=== PATIENT | female | born 1960 | race Caucasian/White ===

== ENCOUNTER → 2018-03-12 12:38 | Outpatient (CLI) | payer OTHER, SELFPAY ==
[2018-03-12 15:02] LABS: Thyroid Stimulating Hormone 1.21 uIU/ml (0.358-3.740)
== END ==
PROVIDERS: Visit Provider Obstetrics & Gynecology
DX: R53.81 Other malaise (principal); R53.82 Chronic fatigue, unspecified
CPT/HCPCS: 36415; 84443

== ENCOUNTER → 2018-03-23 08:49 | Outpatient (POV) | payer OTHER, SELFPAY | PROVIDERS: Visit Provider Dermatology | DX: Z00.00 Encounter for general adult medical examination without abnormal findings (principal) ==

== ENCOUNTER → 2018-03-26 10:03 | Outpatient (CLI) | payer OTHER, SELFPAY ==
--- NOTE | 2018-03-26 | US_ITS ---
US breast RT complete COMPARISON: None HISTORY: Possible change in asymmetric density right breast on mammogram performed same date TECHNIQUE: Targeted ultrasound upper outer quadrant FINDINGS: There is normal-appearing primarily homogeneous glandular echogenicity in the upper outer quadrant of the breast. There is no suspicious cystic or solid lesions seen and there are no findings to suggest architectural distortion. There are couple borderline enlarged fatty replaced nodes in the axilla. IMPRESSION: Essentially negative targeted ultrasound and recommend the patient continue with yearly screening mammography.
--- NOTE | 2018-03-26 10:06 | MM_ITS ---
MM Dig mamm BI DX w/CAD COMPARISON: Digital mammograms with CAD 03/22/2012 and 02/14/2015 and analog mammogram 05/07/2005 INDICATION: There is no personal or family history of breast cancer, there has been a previous biopsy left breast . The patient complains of a possible lump or fullness upper outer quadrant right breast. TECHNIQUE: Standard MLO and CC views were obtained along with spot compression MLO and CC views. FINDINGS: The breasts are closed primarily of fat with minimal scattered fibroglandular densities in each breast. There is an asymmetric density upper outer quadrant right breast which has been seen previously but has somewhat more well-defined borders on today's exam best appreciated on the CC projection. The lesion does appear to press out somewhat on the spot CC view. Ultrasound was performed same date showing no abnormal cystic or solid mass at this location. There are no suspicious microcalcifications. IMPRESSION: Upper fatty parenchyma with stable asymmetric glandular tissue right breast and no suspicious lesion seen BI-RADS Category: 2 Benign Finding(s) RECOMMENDED FOLLOW-UP: 1YR - 1 YEAR FOLLOW-UP (A letter has been sent to the patient regarding results of the study.)
== END ==
PROVIDERS: Visit Provider Obstetrics & Gynecology
DX: N63.11 Unspecified lump in the right breast, upper outer quadrant
CPT/HCPCS: 76641; 77066

== ENCOUNTER 2021-10-11 08:30 | Emergency (ER) | payer OTHER, SELFPAY ==
[2021-10-11 08:30] VITALS: BP 157/98; PULSE 68; RESP 18; TEMP 36.2; O2SAT 98; BMI 33.2
--- NOTE | 2021-10-11 08:48 | HMH.EDUTC ---
[facility] – [place] Disposition Clinical Impression: Tick bite Qualifiers: Encounter type: initial encounter Site of tick bite: shoulder Laterality: right Qualified Code(s): S40.261A - Insect bite (nonvenomous) of right shoulder, initial encounter Cellulitis Qualifiers: Site of cellulitis: extremity Site of cellulitis of extremity: upper extremity Laterality: right Qualified Code(s): L03.113 - Cellulitis of right upper limb Disposition: Home, Self-Care Condition on Discharge: Good Instructions: DI for Cellulitis -- Adult, Protect Yourself from Tickborne Illnesses Additional Instructions: Keep the affected area clean and dry. Follow up with your regular doctor. Take the antibiotics as directed and apply the topical antibiotics as directed. Apply warm wet compresses to the affected area three or four times per day for the next 5 days GO TO THE ER FOR ANY WORSENING SYMPTOMS Prescriptions: Mupirocin [Bactroban 2% Ointment 22gm tube] 1 applicatio TP TID 7 Days #1 gm Transmission Status: Received by [facility] [employer] Doxycycline Monohydrate [Doxycycline Bibb 100mg Tab] 100 mg PO Q12 10 Days #20 tab Transmission Status: Received by [employer] Referrals: Quinn Miranda MD [Primary Care Provider] - Time of Disposition: 09:00 Medical Decision Making - Medical Records Medical records reviewed: No: I reviewed the patient's medical records. - Philip Inquiry Pt receiving controlled substance: No Vital Signs: 10/11/21 08:30 10/11/21 08:50 Temperature 97.1 F L 97.1 F L Temperature Source Oral Pulse Rate 68 Pulse Rate [Left Brachial] 68 Respiratory Rate 18 18 Blood Pressure 157/98 H Blood Pressure [Left Arm] 157/98 H Blood Pressure Mean [Left Arm] 117 Blood Pressure Source [Left Arm] Automatic Cuff Blood Pressure Position [Left Arm] Sitting 02 Sat by Pulse Oximetry 98 Oxygen Delivery Method Room Air [facility] [place] HPI - General Stated complaint: possible tick bite Time Seen by Provider: 10/11/21 08:48 - History of Present Illness Provider Complaint: She states that she found a tick embedded on her right shoulder last night. She removed the tick, but it is feeling warm and painful at the site. - Related Data Previous Rx's Medication Instructions Recorded Doxycycline Monohydrate 100 mg PO Q12 10 Days #20 tab 06/10/22 [Doxycycline Bibb 100mg Tab] Mupirocin [Bactroban 2% Ointment 1 applicatio TP TID 7 Days #1 gm 10/11/21 22gm tube] Allergies Allergy/AdvReac Type Severity Reaction Status Date / Time No Known Allergies Allergy Verified 03/23/18 14:41 [facility] History - Hepatitis A Screen Attestation statement:: This patient has been screened for Hepatitis A risk factors. I have reviewed the patient's past medical history: Yes Medical History: Denies:: Diabetes Mellitus Type 1, Diabetes Mellitus Type 2 - Social History Smoking Status: Current every day smoker # Packs/Day (cigarettes): 1 Alcohol Intake: never Occupational Status: employed ROS Obtained: Yes All systems reviewed & no additional complaints - Constitutional Constitutional: Denies chills, Denies fever(s), Denies poor appetite, Reports malaise - ENT Ears, Nose, Mouth, and Throat: Denies dizziness, Denies otalgia, Denies sore throat, Denies vertigo/dizziness - Musculoskeletal Musculoskeletal: Denies joint pain - Integumentary/Breasts Skin/Breast: Reports as per HPI Physical Exam - General General appearance: alert, in no apparent distress - Head Head exam: atraumatic, normocephalic, normal inspection - Eye Eye exam: Present: normal appearance, PERRL, EOMI - ENT ENT exam: Present: normal exam, normal oropharynx, mucous membranes moist, TM's normal bilaterally, normal external ear exam - Neck Neck exam: Present: normal inspection, full ROM, trachea midline. Absent: meningismus, lymphadenopathy - Chest Chest inspection: Present: normal inspection, symmetric chest wa
[2021-10-11 08:50] VITALS: BP 157/98; PULSE 68; RESP 18; TEMP 36.2; O2SAT 98
== END 2021-10-11 09:02 | disposition home or self-care (01) ==
PROVIDERS: Emergency Provider Nurse Practitioner Family; PCP Emergency Medicine
DX: S40.261A Insect bite (nonvenomous) of right shoulder, initial encounter (principal); L03.113 Cellulitis of right upper limb
CPT/HCPCS: 99212; G0463

== ENCOUNTER → 2021-11-19 14:57 | Outpatient (CLI) | payer OTHER, SELFPAY ==
--- NOTE | 2021-11-19 15:00 | XR_ITS ---
FINAL REPORT CLINICAL HISTORY: pinky finger fracture FINDINGS: LEFT HAND Three views were obtained. There is evidence of a fracture at the dorsal aspect of the 5th middle phalanx. Fracture fragment is displaced approximately 4 mm. There is flexion deformity of the 5th digit. Mild and moderate degenerative changes are present. IMPRESSION: Fracture as above. Reviewed, Interpreted and Dictated by Nahid Parks III, MD Transcribed by Courtney Scott Authenticated and [facility]
== END ==
PROVIDERS: PCP Emergency Medicine; Visit Provider Physician Assistant Surgical
DX: S62.637A Displaced fracture of distal phalanx of left little finger, initial encounter for closed fracture (principal)
CPT/HCPCS: 73130

== ENCOUNTER 2022-09-24 08:15 | Emergency (ER) | payer OTHER, SELFPAY ==
[2022-09-24 08:19] VITALS: BP 152/102; PULSE 67; RESP 18; TEMP 36.8; O2SAT 98; BMI 29.2
--- NOTE | 2022-09-24 08:20 | XR_ITS ---
FINAL REPORT CLINICAL HISTORY: stepped on a thorn FINDINGS: Right foot Three views were obtained. There is no acute fracture or dislocation. The joint spaces appear normal. No soft tissue abnormality is identified. IMPRESSION: No acute process. Reviewed, Interpreted and Dictated by Nahid Parks III, MD Transcribed by Courtney Scott Authenticated and [facility]
--- NOTE | 2022-09-24 09:04 | EXP.UTC ---
Discharge Plan Disposition Patient Disposition: Home, Self-Care Condition: Good Prescriptions Prescriptions: New cephalexin 500 mg capsule 500 mg PO QID Qty: 40 0RF mupirocin 2 % ointment 1 applic topical TID 7 Days Qty: 15 0RF ibuprofen [ibuprofen] 600 mg tablet 600 mg PO Q6HP PRN (Reason: Mild Pain) Qty: 30 0RF No Action clindamycin HCl 300 mg capsule 300 mg PO BID 7 Days Qty: 14 0RF cephalexin 500 mg capsule 500 mg PO TID Qty: 21 0RF Referrals Follow up/Referrals: Provider,Referral, MD [Primary Care Provider] - See instructions Activity Restrictions/Add. Instructions Additional Instructions/Restrictions: Rest the extremity, Elevate the extremity as tolerated while you are resting. Take ibuprofen for pain. I sent in a prescription to your pharmacy. Follow up with Dr. Renner (podiatry). Sometimes there can be fractures that don't show up well on the first set of x-rays. So, you should follow up if you continue to have symptoms. I put in a referral but you need to call her office and schedule an appointment. Follow up with your regular doctor. GO TO THE ER FOR ANY WORSENING SYMPTOMS Clinical Impressions Clinical Impression: Puncture wound of foot, right Instructions Patient Instructions: DI for Puncture Wound Discharge ED Provider: Jose Monique [facility] General Stated complaint: AO09/22@home, steeped on thorn,pain in Rt foot Mode of Arrival: Ambulatory Source of Information: Patient Limitations: No Limitations Time Seen by Provider: 09/24/22 08:53 HEENT Symptoms (Recalled from RN notes): No Resp Symptoms (Recalled from RN notes): No Skin Symptoms (Recalled from RN notes): No MS Symptoms (Recalled from RN notes): Yes Functional Status (Recalled from RN notes): wnl History of Present Illness Provider Complaint: pt c/o R foot pain, she states she stepped on a thorn on 09/22. She does not believe the thorn in still in her foot, but she is afraid the wound will get infected. Related Data Previous Rx's Medication Instructions Recorded cephalexin 500 mg capsule 500 mg PO TID #21 caps 05/14/22 clindamycin HCl 300 mg capsule 300 mg PO BID 7 days #14 caps 05/14/22 cephalexin 500 mg capsule 500 mg PO QID #40 caps 09/24/22 ibuprofen 600 mg tablet 600 mg PO Q6HP PRN Mild Pain #30 09/24/22 tabs mupirocin 2 % topical ointment 1 applic topical TID 7 days #15 09/24/22 grams Allergies Allergy/AdvReac Type Severity Reaction Status Date / Time No Known Allergies Allergy Verified 09/24/22 08:27 Worker's Comp Is this a Worker's Comp case?: No [facility] Dis[facility]: The information contained in this section may have been updated after the patient was seen, as this information can be updated by other users. Social History Smoking Status: Current every day smoker alcohol intake: never current occupational status: employed Travel in the last 8 weeks: None housing: house ROS Obtained: Yes All systems reviewed & no additional complaints except as documented Constitutional Constitutional: Denies chills and Denies fever(s) Eyes Eyes: Denies eye discharge ENT Ears, Nose, Mouth, and Throat: Denies dizziness, Denies otalgia and Denies sore throat Cardiovascular Cardiovascular: Denies chest pain Respiratory Respiratory: Denies shortness of breath, Denies chest congestion, Denies cough, Denies stridor and Denies wheezing Gastrointestinal Gastrointestingal: Denies nausea or vomiting Musculoskeletal Musculoskeletal: Reports system reviewed and no additional complaints, except as documented and Denies arthralgias Integumentary/Breasts Skin/Breast: Reports as per HPI Neurologic Neurologic: Denies dizziness and Denies paresthesias Allergic/Immunologic Allergic/Immunologic: Denies wheezing Physical Exam General General appearance: alert and in no apparent distress Head Head exam: atraumatic, normocephalic and normal inspection Eye Eye exam: Present normal
[2022-09-24 09:20] VITALS: BP 152/102; PULSE 67; RESP 18; TEMP 36.8
== END 2022-09-24 09:21 | disposition home or self-care (01) ==
PROVIDERS: Emergency Provider Nurse Practitioner Family
DX: S91.331A Puncture wound without foreign body, right foot, initial encounter (principal); F17.210 Nicotine dependence, cigarettes, uncomplicated; W60.XXXA Contact with nonvenomous plant thorns and spines and sharp leaves, initial encounter
CPT/HCPCS: 73630; 99212; 99214; G0463